=== PATIENT | female | born 1945 | race Caucasian/White ===

== ENCOUNTER 2016-08-14 17:06 | Observation (INO) | payer MEDICARE, OTHER ==
[~2016-08-14] VITALS: Ht 165.1 cm; Wt 86.5 kg
[~2016-08-14 17:06] MED LIST: BENICAR20 MG PO; ESTRACE2 MG PO; GABAPENTIN100 MG PO; PREDNISONE10 MG PO; ULTRAM50 MG PO; ZIAC 10-6.25 MG1 TAB PO
[2016-08-14 18:36] LABS: BASOPHILS 0.2 % (0-2); HEMATOCRIT 37.1 % (36.0-48.0); HEMOGLOBIN 12.2 g/dL (12-16); IMMATURE GRANULOCYTES 0.3 % (0-5); LYMPHOCYTES 17.2 % (15-50); MCH 29.3 pg (26.0-34.0); MCHC 32.9 g/dL (31.0-37.0); MEAN PLATELET VOLUME 10.1 fL (7.4-10.4); MONOCYTES 6.3 % (2-11); PLATELET COUNT 303 10x3/uL (130-400); RBC 4.17 10x6/uL (4.00-5.40); RDW 12.7 % (11.5-14.5)
[2016-08-14 18:43] LABS: ALBUMIN 3.4 g/dL (3.4-5.0); ALKALINE PHOSPHATASE 61 U/L (46-116); ALT (SGPT) 17 U/L (10-68); BILIRUBIN - TOTAL 0.22 mg/dL (0.2-1.3); CALC OSMOLALITY 279 mosm/kg (275-300); CALCIUM 9.7 mg/dL (8.5-10.1); CARBON DIOXIDE 29.5 mmol/L (21.0-32.0); CHLORIDE - SERUM 102 mmol/L (98-107); CREATININE - SERUM 0.9 mg/dL (0.6-1.3); GLUCOSE 99 mg/dL (74-106); POTASSIUM - SERUM 3.9 mmol/L (3.5-5.1); PROTEIN - SERUM 7.4 g/dL (6.4-8.2); SODIUM 139 mmol/L (136-145); UREA NITROGEN 18 mg/dL (7-18); eGFR NON AFRICAN AMERICAN 65 mL/min (90-120)
[2016-08-14 18:53] LABS: CKMB 0.9 U/L (0.0-3.6); CREATINE KINASE 57 UL (21-215); MAGNESIUM - SERUM 1.6 mg/dL (1.8-2.4); PHOSPHOROUS 3.8 mg/dL (2.5-4.9); THYROID STIMULATING HORMONE 1.65 uIU/mL (0.36-3.74)
[2016-08-14 18:56] LABS: TROPONIN-I < 0.017 ng/mL (0.000-0.060)
[2016-08-14 20:07] LABS: APPEARANCE CLEAR (CLEAR); COLOR YELLOW (YELLOW)
[2016-08-14 20:08] LABS: BILIRUBIN NEGATIVE (NEGATIVE); GLUCOSE NEGATIVE (NEGATIVE); KETONE NEGATIVE (NEGATIVE); LEUKOCYTE ESTERASE NEGATIVE (NEGATIVE); NITRITE NEGATIVE (NEGATIVE); PROTEIN NEGATIVE (NEGATIVE); UROBILINOGEN NORMAL (NORMAL)
[2016-08-14] MEDS ORDERED: IBUPROFEN800 MG PO (21:16)
[2016-08-14] MEDS ORDERED: VITAMIN D3400 UNI1 PO (21:17)
[2016-08-14] MEDS ORDERED: CENTRUM SILVER1 TA1 PO (21:18)
--- NOTE | 2016-08-14 21:20 | NUR ---
REC FROM ER VIA WC. ALERT/ORIENTED X 4. AMBULATED TO BED WITH STEADY GAIT. IV IN R AC INTACT SL. DENIES PAIN OR ANY DISCOMFORTS. ORIENTED TO ROOM AND CALL LIGHT. FAMILY MEMBERS PRESENT IN ROOM.
--- NOTE | 2016-08-14 21:45 | NUR ---
ADMIN METOPROLOL 25MG PO PER ORDER. CHECKED B/P AT 143/69. APPLIED TELEMETRY LEADS, SHOWS 78 SR ON THE MONITOR.
[2016-08-14 22:28] VITALS: BP 143/69; Ht 165.1 cm; Wt 86.5 kg
[2016-08-15 00:07] LABS: CREATINE KINASE 50 UL (21-215)
[2016-08-15 00:09] LABS: TROPONIN-I < 0.017 ng/mL (0.000-0.060)
[2016-08-15 02:54] LABS: CREATINE KINASE 46 UL (21-215)
[2016-08-15 02:55] LABS: TROPONIN-I < 0.017 ng/mL (0.000-0.060)
--- NOTE | 2016-08-15 04:00 | NUR ---
HEAT CURER PRESENT IN ROOM TAKING VS. DENIES ANY NEEDS OR DISCOMFORTS. KENNEL WORKER SHOWS 62 SR.
[2016-08-15 05:25] VITALS: BP 140/50
[2016-08-15 08:00] VITALS: BP 126/35
[2016-08-15 08:27] LABS: CREATINE KINASE 43 UL (21-215)
[2016-08-15 08:28] LABS: TROPONIN-I < 0.017 ng/mL (0.000-0.060)
[2016-08-15 12:00] VITALS: BP 136/55
[2016-08-15] MEDS ORDERED: LOPRESSOR25 MG PO (13:52)
[2016-08-15] MEDS ORDERED: ULTRAM50 MG PO (14:24)
[2016-08-15] MEDS ORDERED: ROBAXIN500 MG PO (14:24)
--- NOTE | 2016-08-15 15:37 | NUR ---
Patient Name: AMAIRANI CARVAJAL Admission Status: ER Accout number: [id number] Admission Date: 08-14-2016 : 1945 Admission Diagnosis: Attending: HOLLIS Current LOS: 1 Anticipated DC Date: 08-15-2016 Planned Disposition: Home Primary Insurance: MEDICARE A & B Discharge Planning Comments: * Is the patient Alert and Oriented? Yes 0 * How many steps to enter\exit or inside your home? 0-0/14-I 0 * PCP DR. TALLEY 0 * Pharmacy [facility], [facility] 0 * Preadmission Environment Home Alone 0 * ADLs Independent 0 * Equipment Cane Walker 0 * Other Equipment NO MEDICAL EQUIPMENT PROVIDER PREFERENCE 0 * List name and contact numbers for known caregivers / representatives who currently or will assist patient after discharge: BAR CARVAJAL, SON, ROBB CARVAJAL, DTR IN LAW, 0 * Community resources currently utilized None 0 * Please name any agencies selected above. NONE 0 * Additional services required to return to the preadmission environment? No 0 * Can the patient safely return to the preadmission environment? Yes 0 * Has this patient been hospitalized within the prior 30 days at any hospital? No 0 CM MET WITH PT IN ROOM TO DISCUSS DISCHARGE PLANNING AND NEEDS. PT REPORTS LIVING AT HOME INDEPENDENTLY IN APARTMENT BUILT IN HER OLD GARAGE; PT'S SON AND DAUGHTER IN LAW LIVE IN THE HOUSE. PT HAS CANE AND WALKER THAT SHE DOES NOT USE. PT HAS NO MEDICAL EQUIPMENT PROVIDER PREFERENCE AND NO OUTSIDE SERVICES ASSISTING IN THE HOME. CM DISCUSSED AVAILABILITY OF HOME HEALTH, REHAB SERVICES AND MEDICAL EQUIPMENT. PT DENIES DISCHARGE NEEDS, REPORTS HER SON OR DAUGHTER IN LAW WILL PICK HER UP FOR DISCHARGE HOME TODAY. [employer] Dashboard Developer: Eyal Dee
--- NOTE | 2016-08-15 16:56 | NUR ---
ALERT AND ORIENTED X4. DISCHARGE INSTRUCTIONS GIVEN VERBALLY AND WRITTEN. DISCHARGE PAPERS SIGNED ON CHART. DISCHARGE MEDICATIONS SENT TO [facility]. DC RT AC IV TIP INTACT. SON ARRIVE TO ROOM FOR TRANSPORT HOME. INSTRUCTED TO HOLD BENICAR UNTIL FOLLOW UP WITH DR. OREILLY IN THE MORNING AT 8:45 SINCE STARTING NEW MEDICATION LOPRESSOR. ESCORT TO RIDE VIA WHEELCHAIR. REMAINS FREE FROM INJURY.
== END 2016-08-15 18:27 | disposition home or self-care (01) ==
LOC: D.ER 17:06 → D.M2 19:21 → OBSVTIME 19:21 → D.ER 20:22 → D.M2 20:22
PROVIDERS: Family Medicine; ADMIT Emergency Medicine
DX: I16.0 Hypertensive urgency (principal); R51 Headache; M54.9 Dorsalgia, unspecified; M25.559 Pain in unspecified hip

== ENCOUNTER → 2017-08-23 08:46 | Outpatient (CLI) | payer MEDICARE, OTHER ==
[2016-08-14 22:28] VITALS: BMI 29.8
[~2017-08-23 08:46] MED LIST changes: +CENTRUM SILVER1 TA1 PO; +IBUPROFEN800 MG PO; +LOPRESSOR25 MG PO; +ROBAXIN500 MG PO; +VITAMIN D3400 UNI1 PO
== END | disposition home or self-care (01) ==
LOC: D.MRI 08:46
DX: M54.16 Radiculopathy, lumbar region (principal)

== ENCOUNTER → 2018-03-27 17:21 | Outpatient (CLI) | payer MEDICARE, OTHER ==
[2016-08-14 22:28] VITALS: BMI 29.8
== END | disposition home or self-care (01) ==
LOC: D.MAMMO 09:15
DX: Z12.31 Encounter for screening mammogram for malignant neoplasm of breast (principal)